=== PATIENT | female | born 1960 | race Caucasian/White ===

== ENCOUNTER 2017-03-30 17:04 | Emergency (ER) | payer MEDICAID ==
[~2017-03-30] VITALS: Ht 182.9 cm; Wt 130.6 kg
[2017-03-30 17:15] VITALS: BP 184/108
[2017-03-30] MEDS ORDERED: HYDROcodone/APAP 5/325 TABLET ONE (17:57)
[2017-03-30] MEDS ORDERED: HYDROcodone/APAP 5/325 TABLET PO ONE (18:00)
== END 2017-03-30 18:03 | disposition home or self-care (01) ==
LOC: ED 17:30
DX: K08.89 Other specified disorders of teeth and supporting structures (principal)
CPT/HCPCS: 99283

== ENCOUNTER 2017-04-18 20:39 | Emergency (ER) | payer MEDICAID ==
[~2017-04-18] VITALS: Ht 182.9 cm; Wt 134.3 kg
[2017-04-18 20:40] VITALS: BP 137/106
[2017-04-18] MEDS ORDERED: ASPIRIN 81 MG TABLET CHEW PO ONE (21:00)
[2017-04-18] MEDS ORDERED: ASPIRIN 81 MG TABLET CHEW ONE (21:11)
[2017-04-18 21:45] LABS: BLOOD UREA NITROGEN 21 mg/dL (7-18)
[2017-04-18 21:49] LABS: IS PT STATUS REG ER OR PRE ER? YES
== END 2017-04-18 22:41 | disposition home or self-care (01) ==
LOC: ED 22:15
DX: R07.89 Other chest pain (principal); F15.10 Other stimulant abuse, uncomplicated; Z98.51 Tubal ligation status
CPT/HCPCS: 36415; 71010; 80048; 82040; 83880; 84484; 85025; 93005; 99285

== ENCOUNTER 2017-09-07 00:21 | Emergency (ER) | payer MEDICAID ==
[~2017-09-07] VITALS: Ht 182.9 cm; Wt 120.0 kg
[2017-09-07] MEDS ORDERED: LORazepam 1MG TABLET ONE (01:22)
[2017-09-07 01:44] LABS: HEMATOCRIT 38.4 % (34.6-47.8); HEMOGLOBIN 12.3 g/dL (11.7-16.4); WHITE BLOOD COUNT 15.1 x10^3/uL (3.4-10)
[2017-09-07 01:56] LABS: ASPARTATE AMINO TRANSFERASE 14 U/L (15-37); BLOOD UREA NITROGEN 27 mg/dL (7-18)
[2017-09-07] MEDS ORDERED: LORazepam 1MG TABLET PO ONE (02:00)
[2017-09-07 02:24] LABS: DAU SCREEN DISCLAIMER
[2017-09-07 02:41] LABS: IS PT STATUS REG ER OR PRE ER? YES
[2017-09-07 04:12] VITALS: BP 139/72
== END 2017-09-07 04:46 | disposition home or self-care (01) ==
LOC: ED 00:58
DX: N30.01 Acute cystitis with hematuria (principal); N93.8 Other specified abnormal uterine and vaginal bleeding; F15.20 Other stimulant dependence, uncomplicated
CPT/HCPCS: 36415; 76830; 80053; 80307; 81001; 84484; 85025; 87086; 93005; 93970; 99285; G0479

== ENCOUNTER 2017-12-04 12:36 | Emergency (ER) | payer MEDICAID ==
[~2017-12-04] VITALS: Ht 182.9 cm; Wt 138.0 kg
[2017-12-04 12:41] VITALS: BP 133/92
[2017-12-04] MEDS ORDERED: PHENAZOPYRIDINE 200 MG TABLET ONE (13:42)
[2017-12-04] MEDS ORDERED: PHENAZOPYRIDINE 200 MG TABLET PO ONE (14:00)
[2017-12-04 14:35] LABS: CULTURE INDICATED? YES; MICROSCOPIC INDICATED
== END 2017-12-04 15:04 | disposition home or self-care (01) ==
LOC: ED 13:44
DX: N30.00 Acute cystitis without hematuria (principal); F17.200 Nicotine dependence, unspecified, uncomplicated
CPT/HCPCS: 81001; 87077; 87086; 87186; 99284

== ENCOUNTER 2018-03-12 16:43 | Emergency (ER) | payer MEDICAID ==
[~2018-03-12] VITALS: Ht 182.9 cm; Wt 138.8 kg
[2018-03-12 17:09] VITALS: BP 166/120
[2018-03-12] MEDS ORDERED: DIPHENHYDRAMINE 25 MG CAPSULE ONE (18:27)
[2018-03-12] MEDS ORDERED: DIPHENHYDRAMINE 25 MG CAPSULE PO ONE (18:30)
== END 2018-03-12 19:08 | disposition left against medical advice (07) ==
LOC: ED 19:03
DX: R21 Rash and other nonspecific skin eruption (principal)
CPT/HCPCS: 99282; Q0163

== ENCOUNTER 2019-03-16 22:57 | Emergency (ER) | payer MEDICAID ==
[~2019-03-16] VITALS: Ht 182.9 cm; Wt 125.3 kg
--- NOTE | 2019-03-16 23:37 | NUR ---
Daniel jacome in [facility] - 03/16/19 at 2343 by NAZ pt to xray
--- NOTE | 2019-03-16 23:43 | NUR ---
pt presents to ed s/p glf, states she tripped on rock. pt noes right hip, right foot, right chest and left knee pain s/p fall. pt denies head injury or LOC. pt a&o, resps even and unlabored. no brusing, swelling or deformity noted. pt placed assisted into gown, radiology paged to notify pt is ready for imaging.
--- NOTE | 2019-03-16 23:50 | NUR ---
pt to radiology
--- NOTE | 2019-03-16 23:55 | NUR ---
report given to ALIVIA Burris pt in radiology at this time.
--- NOTE | 2019-03-17 00:26 | NUR ---
back from X ray.
--- NOTE | 2019-03-17 00:43 | NUR ---
X ray resulted. chart up for MD to re-eval.
--- NOTE | 2019-03-17 01:06 | NUR ---
re-evaluation done. walker provided. patient discharged with instruction. verbalized understanding.
[2019-03-17 01:07] VITALS: BP 151/98
== END 2019-03-17 01:09 | disposition home or self-care (01) ==
LOC: ED 23:50
DX: S72.114A Nondisplaced fracture of greater trochanter of right femur, initial encounter for closed fracture (principal); S93.601A Unspecified sprain of right foot, initial encounter; S83.92XA Sprain of unspecified site of left knee, initial encounter; S29.9XXA Unspecified injury of thorax, initial encounter; Z86.19 Personal history of other infectious and parasitic diseases; W01.0XXA Fall on same level from slipping, tripping and stumbling without subsequent striking against object, initial encounter; Y93.89 Activity, other specified; Y92.410 Unspecified street and highway as the place of occurrence of the external cause; Y99.8 Other external cause status
CPT/HCPCS: 71045; 99283

== ENCOUNTER 2019-12-08 10:56 | Inpatient (IN) | payer MEDICAID ==
[~2019-12-08] VITALS: Ht 182.9 cm; Wt 125.4 kg
[2019-12-08] MEDS ORDERED: DOCUSATE 100 MG CAPSULE PO PRN (11:30)
[2019-12-08] MEDS ORDERED: POLYETHYLENE GLYCOL 17 GM PACKET PO PRN (11:30)
[2019-12-08] MEDS ORDERED: BISACODYL 10 MG SUPP PR PRN (11:30)
[2019-12-08] MEDS ORDERED: ONDANSETRON ODT 4 MG PO PRN (11:30)
[2019-12-08] MEDS ORDERED: NICOTINE 14MG/24 HR PATCH.TD24 TD SCH (15:00)
[2019-12-08] MEDS ORDERED: PLEASE ENTER HEIGHT AND WEIGHT MC SCH (15:00)
[2019-12-08 15:02] VITALS: BP 117/69
[2019-12-08 15:43] LABS: FREE T4 (FREE THYROXINE) 1.14 ng/dL (0.76-1.46); LDL/HDL RATIO 1.6 (0.5-3.0)
[2019-12-08 19:31] VITALS: BP 147/86
[2019-12-09 07:58] VITALS: BP 168/92
[2019-12-09] MEDS: GUAIFENESIN 200 MG TABLET PO SCH ×4 (08:36→21:00)
[2019-12-09 11:08] LABS: MICROSCOPIC NOT IND
[2019-12-09 11:11] LABS: CULTURE INDICATED? NO
[2019-12-09 13:55] LABS: RAPID INFLUENZA A Negative (Negative); RAPID INFLUENZA B Negative (Negative)
[2019-12-09] MEDS: SERTRALINE 50MG TABLET PO SCH (14:18)
[2019-12-09 19:46] VITALS: BP 128/77
[2019-12-09] MEDS: LIDODERM 5% PATCH TD SCH (21:02)
[2019-12-10] MEDS: GUAIFENESIN 200 MG TABLET PO SCH ×4 (06:07→21:03)
[2019-12-10 07:03] VITALS: BP 127/83
[2019-12-10] MEDS: LIDODERM REMOVE PATCH NOTE XX SCH (09:00)
[2019-12-10] MEDS: SERTRALINE 50MG TABLET PO SCH (09:19)
[2019-12-10 20:15] VITALS: BP 134/70
[2019-12-10] MEDS: LIDODERM 5% PATCH TD SCH (21:00)
[2019-12-10] MEDS: AMOXICILLIN/CLAV 875-125MG TABLET PO SCH (21:03)
[2019-12-11] MEDS: GUAIFENESIN 200 MG TABLET PO SCH ×4 (06:00→19:56)
[2019-12-11 07:29] VITALS: BP 136/83
[2019-12-11] MEDS: AMOXICILLIN/CLAV 875-125MG TABLET PO SCH ×2 (08:12→19:56)
[2019-12-11] MEDS: SERTRALINE 50MG TABLET PO SCH (08:12)
[2019-12-11] MEDS: LIDODERM REMOVE PATCH NOTE XX SCH (09:00)
[2019-12-11 09:34] LABS: BASOPHILS # (AUTO) 0.03 x10^3/uL (0-0.1); BASOPHILS % (AUTO) 0 % (0-1); EOSINOPHILS # (AUTO) 0.19 x10^3/uL (0-0.4); EOSINOPHILS % (AUTO) 3 % (1-7); LYMPHOCYTES # (AUTO) 0.99 x10^3/uL (1-3.4); LYMPHOCYTES % (AUTO) 15 % (22-44); MD NO; MEAN CORPUSCULAR HEMOGLOBIN 24.4 pg (27.0-34.8); MEAN CORPUSCULAR HGB CONC 32.1 g/dL (32.4-35.8); MEAN CORPUSCULAR VOLUME 75.9 fL (80-100); MEAN PLATELET VOLUME 8.6 fL (7.4-10.4); MONOCYTES # (AUTO) 0.47 x10^3/uL (0.2-0.8); MONOCYTES % (AUTO) 7 % (2-9); NEUTROPHILS % (AUTO) 75 % (42-75); PLATELET COUNT 300 x10^3/uL (130-400); RED CELL DISTRIBUTION WIDTH 16.9 % (9.6-15.2)
[2019-12-11 09:46] LABS: ALBUMIN 3.4 g/dL (3.4-5.0); ANION GAP 7 mmol/L (5-15); CALCIUM 9.5 mg/dL (8.5-10.1); CHLORIDE 108 mmol/L (98-107)
[2019-12-11 09:52] LABS: ALANINE AMINOTRANSFERASE 17 U/L (12-78); ALKALINE PHOSPHATASE 122 U/L (45-117); BILIRUBIN,TOTAL 0.9 mg/dL (0.2-1.0); CREATININE 1.31 mg/dL (0.55-1.02); TOTAL PROTEIN 8.4 g/dL (6.4-8.2)
[2019-12-11] MEDS ORDERED: FLU VAC QS 19-20(4YR UP)CEL/PF 0.5 ML IM-VACC ONE (15:00)
[2019-12-11 19:16] VITALS: BP 133/78
[2019-12-11] MEDS: LIDODERM 5% PATCH TD SCH (19:56)
[2019-12-12] MEDS: GUAIFENESIN 200 MG TABLET PO SCH ×4 (05:48→20:49)
[2019-12-12 07:29] VITALS: BP 128/83
[2019-12-12] MEDS: LIDODERM REMOVE PATCH NOTE XX SCH (09:00)
[2019-12-12] MEDS: AMOXICILLIN/CLAV 875-125MG TABLET PO SCH ×2 (09:01→20:49)
[2019-12-12] MEDS: SERTRALINE 50MG TABLET PO SCH (09:02)
[2019-12-12] MEDS: CHOLECALCIFEROL 5,000u TAB PO SCH (15:30)
[2019-12-12 19:00] VITALS: BP 144/81
[2019-12-12] MEDS: LIDODERM 5% PATCH TD SCH (20:49)
[2019-12-12] MEDS: TRAZODONE 150MG TABLET PO PRN (20:49)
[2019-12-13] MEDS: GUAIFENESIN 200 MG TABLET PO SCH ×4 (06:19→21:19)
[2019-12-13 07:37] VITALS: BP 131/75
[2019-12-13] MEDS: LIDODERM REMOVE PATCH NOTE XX SCH (08:31)
[2019-12-13] MEDS ORDERED: CHOLECALCIFEROL 1,000 UNIT TABLET ONE (08:35)
[2019-12-13] MEDS: SERTRALINE 100MG TABLET PO SCH (08:44)
[2019-12-13] MEDS: AMOXICILLIN/CLAV 875-125MG TABLET PO SCH ×2 (08:44→21:19)
[2019-12-13] MEDS: CHOLECALCIFEROL 5,000u TAB PO SCH (08:47)
[2019-12-13 19:34] VITALS: BP 118/80
[2019-12-13] MEDS: LIDODERM 5% PATCH TD SCH (21:00)
[2019-12-13] MEDS: DICYCLOMINE 20 MG TABLET PO SCH (21:19)
[2019-12-14] VITALS (14 sets, daily range): BP systolic 106–145; BP diastolic 53–82
[2019-12-14] MEDS: GUAIFENESIN 200 MG TABLET PO SCH ×4 (05:43→20:33)
[2019-12-14] MEDS: AMOXICILLIN/CLAV 875-125MG TABLET PO SCH ×2 (08:32→20:33)
[2019-12-14] MEDS: SERTRALINE 100MG TABLET PO SCH (08:32)
[2019-12-14] MEDS: LIDODERM REMOVE PATCH NOTE XX SCH (08:32)
[2019-12-14] MEDS: DICYCLOMINE 20 MG TABLET PO SCH ×3 (08:32→20:33)
[2019-12-14] MEDS: CHOLECALCIFEROL 5,000u TAB PO SCH (09:48)
--- NOTE | 2019-12-14 19:16 | NUR ---
MICHELLE MUNIZ - Fall Risk Medications present (SERTRALINE, TRAZODONE) and NOT receiving anticoagulants.
[2019-12-14] MEDS: TRAZODONE 150MG TABLET PO PRN (21:37)
[2019-12-14] MEDS: LIDODERM 5% PATCH TD SCH (21:38)
[2019-12-15] MEDS: GUAIFENESIN 200 MG TABLET PO SCH ×2 (05:25→12:16)
[2019-12-15 07:13] VITALS: BP 138/84
[2019-12-15] MEDS: LIDODERM REMOVE PATCH NOTE XX SCH (09:00)
[2019-12-15] MEDS: DICYCLOMINE 20 MG TABLET PO SCH (09:10)
[2019-12-15] MEDS: AMOXICILLIN/CLAV 875-125MG TABLET PO SCH (09:11)
[2019-12-15] MEDS: SERTRALINE 100MG TABLET PO SCH (09:11)
[2019-12-15] MEDS: CHOLECALCIFEROL 5,000u TAB PO SCH (09:11)
[2019-12-15] MEDS ORDERED: SERT100T32 PO (11:49)
[2019-12-15] MEDS ORDERED: CHOL500045 PO (11:49)
[2019-12-15] MEDS ORDERED: TRAZ150T62 PO (11:49)
[2019-12-15] MEDS ORDERED: AMOX1TAB12 PO (11:49)
== END 2019-12-15 14:50 | disposition home or self-care (01) | DRG 751 ==
LOC: 3E 14:29
PROVIDERS: ADMIT Psychiatry & Neurology Psychosomatic Medicine; ATTEND Psychiatry & Neurology Psychosomatic Medicine
DX: F33.3 Major depressive disorder, recurrent, severe with psychotic symptoms (principal); R45.851 Suicidal ideations; E66.9 Obesity, unspecified; F17.200 Nicotine dependence, unspecified, uncomplicated; J20.9 Acute bronchitis, unspecified; Z79.899 Other long term (current) drug therapy; Z91.5 Personal history of self-harm; Z88.8 Allergy status to other drugs, medicaments and biological substances; Z83.3 Family history of diabetes mellitus; Z82.49 Family history of ischemic heart disease and other diseases of the circulatory system; Z68.37 Body mass index [BMI] 37.0-37.9, adult
CPT/HCPCS: 36415; 71045; 80053; 80061; 81003; 84439; 84443; 85025; 87400; 90674; 93005